=== PATIENT | male | born 1995 | race Two or more races ===

== ENCOUNTER 2024-07-25 02:33 | Emergency (ER) | payer SELFPAY ==
[2024-07-25 03:03] VITALS: BP 147/78; PULSE 130; RESP 20; O2SAT 96
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
[2024-07-25 05:17] VITALS: BMI 31.1
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
[2024-07-25] MEDS: IBUPROFEN TAB 600 MG TABLET PO (05:25)
== END 2024-07-25 19:57 ==
LOC: SERX 06:52
PROVIDERS: Emergency Provider Emergency Medicine
DX: Z02.89 Encounter for other administrative examinations (principal); T30.0 Burn of unspecified body region, unspecified degree; M25.511 Pain in right shoulder; R07.81 Pleurodynia; V89.2XXA Person injured in unspecified motor-vehicle accident, traffic, initial encounter
CPT/HCPCS: 71101; 73030; 99283; A9270